=== PATIENT | female | born 1950 | race Two or more races ===

== ENCOUNTER 2023-08-15 08:08 | Outpatient (CLI) | payer OTHER | END 2023-08-15 08:11 | disposition home or self-care (01) | LOC: SONOGRAMA 08:08 | PROVIDERS: ATTEND Pathology Anatomic Pathology & Clinical Pathology | DX: E04.2 Nontoxic multinodular goiter (principal); D34 Benign neoplasm of thyroid gland; D44.0 Neoplasm of uncertain behavior of thyroid gland ==

== ENCOUNTER 2024-02-06 07:27 | Outpatient (CLI) | payer OTHER | END 2024-02-06 07:29 | disposition home or self-care (01) | LOC: SONOGRAMA 07:27 | PROVIDERS: ATTEND Pathology Anatomic Pathology & Clinical Pathology | DX: D44.0 Neoplasm of uncertain behavior of thyroid gland (principal); E04.2 Nontoxic multinodular goiter ==